=== PATIENT | female | born 1995 | race Caucasian/White ===

== ENCOUNTER 2018-08-08 10:03 | Outpatient (REF) | payer OTHER, MEDICAID, SELFPAY ==
--- NOTE | 2018-08-08 08:30 | PAPFT_PTH ---
PATIENT: Palak Mckenzie LOC: [facility] U#:[id number] AGE/SX: 23/F ROOM: RE08/08/[address]: RITA Sung : 1995 BED: DIS: 08/08/2018 SPEC #: [id number] RECD: 08/08/18 13:19 STATUS: EDMAR REJosh #: [id number] AC: 08/08/18 08:[address]: Nika Chavez DEPT: [facility]CLUD[facility] Cytology RECD BY: Pamella Ramirez ENTERED: 08/08/18 13:19 SP TYPE: PAPFT OTHR DR: Pasquale Rubio Tissues: 1 - CX/ENDOCX FOR PAP SMEARS Procedures: PAP THIN PREP/[facility] Screening Comments: [id number]
[2018-08-09 14:39] LABS: Chlamydia Result Negative; GC Result Negative; Specimen Description CERVIX
== END 2018-08-08 10:23 ==
LOC: LBN 10:03
PROVIDERS: PCP Internal Medicine; Visit Provider Nurse Practitioner Family
DX: R30.0 Dysuria (principal); Z11.3 Encounter for screening for infections with a predominantly sexual mode of transmission; Z12.4 Encounter for screening for malignant neoplasm of cervix
CPT/HCPCS: 87491; 87591; 88142; 87086

== ENCOUNTER 2018-08-20 17:48 | Outpatient (REF) | payer OTHER, MEDICAID, SELFPAY ==
--- NOTE | 2018-08-20 14:50 | ENDO_PTH ---
PATIENT: Palak Mckenzie LOC: [facility] U#:[id number] AGE/SX: 23/F ROOM: RE08/20/[address]: RITA Sung : 1995 BED: DIS: 08/20/2018 SPEC #: [id number] RECD: 08/20/18 17:53 STATUS: EDMAR REQ #: [id number] AC: 08/20/18 14:[address]: Nika Cahvez DEPT: Surgical Specimen RECD BY: Pamella Ramirez ENTERED: 08/20/18 17:54 SP TYPE: Endo OTHR DR: Pasquale Rubio Tissues: 1 - ENDOCERVICAL BX/CURRETTE Procedures: GROSS AND MICRO LEVEL 4 Comments: [id number]
== END 2018-08-20 18:08 ==
LOC: LBN 17:48
PROVIDERS: PCP Internal Medicine; Visit Provider Nurse Practitioner Family
DX: N87.9 Dysplasia of cervix uteri, unspecified (principal); N72 Inflammatory disease of cervix uteri; R87.612 Low grade squamous intraepithelial lesion on cytologic smear of cervix (LGSIL)
CPT/HCPCS: 88305

== ENCOUNTER 2019-07-15 12:47 | Outpatient (REF) | payer OTHER, MEDICAID, SELFPAY ==
[2019-07-15 18:05] LABS: ESR 10 mm/hr (0-20)
[2019-07-17 13:37] LABS: C-Reactive Protein 0.06 mg/dL (0.0-0.3)
== END 2019-07-15 13:07 ==
LOC: NCHCN 12:47
PROVIDERS: PCP Internal Medicine; Visit Provider Specialist/Technologist Athletic Trainer
DX: L08.9 Local infection of the skin and subcutaneous tissue, unspecified (principal)
CPT/HCPCS: 85652; 86141; 86140

== ENCOUNTER 2019-10-13 14:19 | Outpatient (REF) | payer OTHER, SELFPAY ==
--- NOTE | 2019-10-13 13:30 | PAPFT_PTH ---
PATIENT: Palak Mckenzie LOC: [facility] U#:[id number] AGE/SX: 24/F ROOM: RE10/13/[address]: Karen Louis NP : 1995 BED: DIS: 10/13/2019 SPEC #: [id number] RECD: 10/13/19 16:51 STATUS: EDMAR REJosh #: [id number] AC: 10/13/19 13:[address]: Karen Louis NP DEPT: [facility] Cytology RECD BY: Pamella Ramirez ENTERED: 10/13/19 16:51 SP TYPE: PAPFT OTHR DR: Pasquale Rubio Tissues: 1 - CX/ENDOCX FOR PAP SMEARS Procedures: PAP THIN PREP/[facility]VM Screening Comments: [id number]
[2019-10-14 13:40] LABS: Chlamydia Result Negative (Negative); GC Result Negative (Negative)
== END 2019-10-13 14:39 ==
LOC: LBN 14:19
PROVIDERS: PCP Internal Medicine; Visit Provider Nurse Practitioner Women's Health
DX: Z11.3 Encounter for screening for infections with a predominantly sexual mode of transmission (principal); Z12.4 Encounter for screening for malignant neoplasm of cervix
CPT/HCPCS: 87491; 87591; 88142

== ENCOUNTER 2019-11-28 12:55 | Outpatient (REF) | payer OTHER, SELFPAY ==
[2019-11-28 15:46] LABS: ALT 18 U/L (14-59); AST 15 U/L (15-37); Albumin 4.5 g/dL (3.4-5.0); Alkaline Phosphatase 76 U/L (46-116); BUN 7 mg/dL (7-18); Bilirubin, Total 0.8 mg/dL (0.2-1.0); CREATININE 0.91 mg/dL (0.55-1.02); Calcium 9.5 mg/dL (8.5-10.1); Chloride 102 mmol/L (98-107); Glucose 83 mg/dL (74-106); HGB 15.3 g/dL (12.0-15.5); Mean Corpuscular Hemoglobin 31.7 pg (27.0-33.0); Mean Corpuscular Volume 93.4 fL (80-95); Mean Platelet Volume 11.4 fL (8.0-11.0); Platelet Count 228 x1000/uL (130-400); Potassium 4.2 mmol/L (3.5-5.1); RBC 4.82 m/cumm (4.00-5.20); RBC Distribution Width 13.5 % (11.7-14.6); Sodium 139 mmol/L (136-145); Total Protein 8.3 g/dL (6.4-8.2); White Blood Cell Count 8.52 k/cumm (4.4-10.8)
[2019-11-28 15:49] LABS: Mono Screening Negative (Negative)
[2019-12-01 15:35] LABS: HSV 1 PCR, Varies Positive (Negative); HSV 2 PCR, Varies Negative (Negative); Herpes Source LOWER LIP
[2019-12-01 15:52] LABS: COVID-19 RT-PCR UVMMC Result Negative (Negative)
[2019-12-02 20:50] LABS: Specimen Source LOWER LIP
== END 2019-11-28 13:15 ==
LOC: NCHCN 12:55
PROVIDERS: PCP Internal Medicine; Visit Provider Nurse Practitioner Family
DX: J02.9 Acute pharyngitis, unspecified (principal); Z11.59 Encounter for screening for other viral diseases; R59.1 Generalized enlarged lymph nodes
CPT/HCPCS: 80053; 85027; 87529; U0003; 86308; 87798

== ENCOUNTER 2019-12-03 16:14 | Outpatient (REF) | payer OTHER, SELFPAY ==
[2019-12-05 11:04] LABS: HSV 1 DNA Result Positive (Negative); HSV 2 DNA Result Negative (Negative)
[2019-12-05 13:33] LABS: Chlamydia Result Negative (Negative); GC Result Negative (Negative)
== END 2019-12-03 16:34 ==
LOC: LBN 16:14
PROVIDERS: PCP Internal Medicine; Visit Provider Nurse Practitioner Women's Health
DX: N94.9 Unspecified condition associated with female genital organs and menstrual cycle (principal); Z11.3 Encounter for screening for infections with a predominantly sexual mode of transmission
CPT/HCPCS: 87491; 87529; 87591

== ENCOUNTER 2019-12-27 08:58 | Emergency (ER) | payer OTHER, SELFPAY ==
[2019-12-27] VITALS (13 sets, daily range): BP systolic 100–106; BP diastolic 62–68; PULSE 79–109; RESP 15–18; TEMP 36.5; O2SAT 97–100
--- NOTE | 2019-12-27 09:01 | ED.GENADUL_ITS ---
Discharge Plan Disposition Patient Disposition: HOME Condition: Good Discharge Details Chief Complaint: GenMedical Clinical Impression: Alcohol use, Racing heart beat Primary Care Provider: Pasquale Rubio ED Provider: Yelena Hwang Home Meds and New Rx's Prescriptions: Continued Hair,Skin and Nails(FA-biotin) 66.7-1,000 mcg tablet PO DAILY RF: 0 valacyclovir [Valtrex] 500 mg tablet 500 mg PO BID 3 Days Qty: 6 RF: 8 Women's Daily Caplet 1 EACH tablet 1 ea PO RF: 0 Mirena 1 EACH intrauterine device 1 ea Intrauterine ONCE Qty: 1 RF: 0 Discharge Instructions Instructions: Abuse of Alcohol (ED) Additional Instructions: Your EKG and labs are reassuring today. Much of this is likely associated with your alcohol use last night. Please encourage water intake. Try to cut back on alcohol. When you feel that you are ready need help with quitting please reach out to your primary care. gymnastics coach will be touching base. If you develop new/worsening symptoms please seek care urgently once again. Referrals: Pasquale Rubio MD [Primary Care Provider] - Medical Decision Making <ANN-MARIE Whitehead - Last Filed: 12/27/19 10:38> Patient is 24-year-old female presenting requesting hydration. Since the patient had large amount although typical amount of alcohol last night. States that last night prior to bed she had noted her heart was racing. She also fel t that her skin was hot. She denied any chest pain. No shortness of breath. Denies any GI upset. States she has not felt like this typically with her daily alcohol consumption. Patient reports IUD is in place, denies status. Patient denies any illicit drug use. Denies any marijuana use. Symptoms have since resolved and she is currently feeling at her baseline although reports b eing tired. On exam, patient is difficult to elicit history from. She is nontoxic and does not appear acutely ill. She does appear dehydrated. She is guarded in her answer and slow to do so. Normal cardiac exam, lungs are clear. Exam is otherwise within normal limits. I began discussing my concerns regarding the patient's symptoms and recommended evaluation, the patient began declining for any she only wanted hydration. On further questioning since the patient does not want us to run a drug test on her and does not want her medical information disclosed to others with seems to be her primary concern. I reassured her that no drug screen would be performed she had denied any illicit drug use. Advised that we would be looking for potential causes of her racing heart as well as hydrating the patient. Advised that we would perform a test which she is in agreement with. EKG was reviewed by Dr. López. Patient is in a normal sinus rhythm with a rate of 83. No acute ischemic changes noted. Labs reviewed. No significant abnormalities noted on CBC. No significant abnormalities on CMP. Troponin is less than 0.05. She had a symptoms last night and they are currently resolved, do not feel that repeat is necessary at this point. TSH within normal limits. ETOH 38.. UPT negative. Patient is requesting discharge. She has been asymptomatic since being here. I did offer her manager of disaster recovery to come chat with her which she declined. However, I am concerned about the large amount of alcohol the patient reports drinking daily. She does report that her family is concerned regarding her generous alcohol consumption. I have rechecked the manager of disaster recovery and have asked that they call to touch base. Improving that with some time she may reconsider. I did advise close follow-up with primary care. Encourage water intake. Encourage cutting back on alcohol. She was given return precautions. All other questions or concerns were addressed and she is in agreement this plan <Graeme López MD - Last Filed: 12/27/19 10:12> Patient seen, examined, discussed with Ms. Hwang. I agree with her assessment and plan of care. See her note for details. HPI <ANN-MARIE Whitehead - Last Filed: 12/27/19 10:38> General Mode of arrival: ambulatory . Date/Time Provider Initiated Documentation: 12/27/19 09:01 . Limitations to Documentation: no limitations . Information obtained by: patient and RN notes reviewed . HPI Narrative: Patient is a 24-year-old female presenting today requesting hydration. She reports that she drank a typical amount of alcohol last night, 7-8 hard alcohol beverages, and woke up this morning feeling unwell. She reports that last night, prior to bed she did have a similar feeling. She felt her heart was racing. She felt that her skin was on fire. Denies any shortness of breath. No GI upset. Denies any change in bowel or bladder habits. Denies any fevers. Denies any central chest pain. No back pain. Denies any headache. No visual changes. Patient denies any illicit drug use. Related Data Home Medications Medication Instructions Recorded Confirmed Women's Daily Caplet 1 ea PO 07/10/17 12/03/19 Mirena 1 ea INTRAUTERINE ONCE #1 implant 08/15/17 12/27/19 multivitamin with minerals-folic tab PO DAILY tab 08/20/18 12/03/19 acid 66.7 mcg-biotin 1,000 mcg tablet valacyclovir 500 mg tablet 500 mg PO BID 3 Days #6 tab 12/03/19 12/27/19 Previous Rx's Medication Instructions Recorded valacyclovir 500 mg tablet 500 mg PO BID 3 Days #6 tab 12/03/19 Allergies Allergy/AdvReac Type Severity Reaction Status Date / Time [employer] Allergy HIVES Uncoded 12/27/19 09:11 Review of Systems <ANN-MARIE Whitehead - Last Filed: 12/27/19 10:38> Constitutional Constitutional: Reports as per HPI, Denies chills, Denies fever(s), Denies headache(s), Denies lethargy and Denies poor appetite Eyes Eyes: Denies change in vision ENT Ears, Nose, Mouth, and Throat: Denies dizziness and Denies headache(s) Cardiovascular Cardiovascular: Reports as per HPI, Denies chest pain, Denies chest pain at rest, Denies chest pain with activity, Denies diaphoresis, Denies syncope, Reports rapid heart rate, Denies irregular heart rhythm, Denies leg edema, Denies lightheadedness, Denies radiating jaw, neck or arm pain, Denies palpitations, Denies dyspnea, Denies dyspnea on exertion and Denies orthopnea Respiratory Respiratory: Reports as per HPI, Denies chest congestion, Denies cough, Denies pain on inspiration, Denies pain with cough, Denies dyspnea, Denies dyspnea on exertion and Denies wheezing Gastrointestinal Gastrointestinal: Reports as per HPI, Denies abdominal pain, Denies diarrhea, Denies nausea and Denies vomiting Musculoskeletal Musculoskeletal: Reports as per HPI and Denies back pain Integumentary/Breasts Skin/Breast: Reports as per HPI, Denies rash and Reports other ([place] hot- indicates her torso) Neurologic Neurologic: Reports as per HPI, Denies dizziness, Denies syncope and Denies headache(s) Endocrine Endocrine: Denies palpitations Allergic/Immunologic Allergic/Immunologic: Denies wheezing PFSH <ANN-MARIE Whitehead - Last Filed: 12/27/19 10:38> Medical History Anal fissure (Resolved) Dx at colonoscopy for hematochezia. 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 Irritable bowel syndrome without diarrhea (Chronic 07/26/15) IUD surveillance (Acute) Migraine with aura and without status migrainosus, not intractable (Chronic 07/10/17) Surgical History Tonsillectomy and adenoidectomy Social History Smoking/Tobacco Use Status: Never Alcohol Intake: current Alcohol Intake frequency: a few times a week Drug use: Never Substance use type: does not use Do you feel safe at home: Yes Do you feel safe in your relationship?: Yes Female Reproductive History Menstrual control method: progestin IUCD History History 0 Para Hx # Term Pregnancies Multiple births Hx # Pregnancies Ectopic pregnancies AB induced Hx Number of Living Children AB spontaneous Exam <ANN-MARIE Whitehead - Last Filed: 12/27/19 10:38> Const General: cooperative, comfortable, no acute distress, well developed and intoxicated appearing (patient is delayed in responses, guarded and vague) Nutritional Appearance: average body habitus and well nourished Orientation: alert, awake and oriented x3 HENMT Head: normal to inspection Ears: hearing grossly normal bilaterally, external ears normal and TM's normal bilaterally General nose exam: external nose normal Mouth: oral mucosae normal, lip normal, tongue normal and mucous membranes dry (looks dry) Teeth and gingiva: dentition normal Throat: posterior oropharynx normal, tonsils normal and uvula midline Eyes General: appearance normal, both eyes and all related structures Visual Cantu: normal visual cantu by confrontation Alignment and Position: alignment normal and position normal Periorbital: periorbital findings normal Eyelids: eyelids normal Conjunctivae: conjunctivae normal Pupils: PERRL and normal by confrontation Chest Chest: normal inspection of the chest, normal palpation of entire chest wall and no crepitus Resp Effort & Inspection: normal respiratory effort, able to speak in complete sentences and no respiratory distress Auscultation: clear to auscultation bilaterally, no rales, no rhonchi and no wheezes Cardio Rate: regular rate Rhythm: regular rhythm Heart Sounds: S1 normal and S2 normal GI Inspection: normal to inspection, no edema and non-distended Palpation: soft, no hepatosplenomegaly, not firm, no guarding, not rigid and nontender Auscultation: normal bowel sounds Back/Spine/Pelvis Back: no CVA tenderness Thoracic/Lumbar Spine: thoracic and lumbar spine normal to inspection Skin General skin exam: no rashes or lesions noted Trauma: no lacerations or abrasions Neuro General: patient alert, patient awake and patient oriented x3 Cognition: normal cognition Speech: speech normal Gait: normal gait Extrem General: normal to inspection, capillary refill normal, no pedal edema, no calf tenderness and normal gait Psych Appearance: grossly normal and well kempt Mental Status: mental status grossly normal Speech and Movement: delayed speech and slowed movement Affect: indifferent and blunted Attitude: guarded Thought Process: normal Thought Content: normal
[2019-12-27] MEDS: Lactated Ringers 1,000 ML 1000 ML IV (09:32)
[2019-12-27 09:33] LABS: Abs Immature Grans 0.02 k/cumm (0.0-0.09); Absolute Basophil Count 0.03 k/cumm (0.0-0.2); Absolute Eosinophil Count 0.08 k/cumm (0.0-0.7); Absolute Monocyte Count 0.57 k/cumm (0.11-0.7); Absolute Neutrophil Count 4.78 k/cumm (1.2-6.7); Basophils % 0.4; Eosinophils % 1.1; HCT 42.3 % (36.0-46.0); HGB 14.3 g/dL (12.0-15.5); Immature Grans % 0.3 %; Lymphocytes % 27.7; Mean Corp. HGB Concentration 33.8 g/dL (32.0-36.0); Mean Corpuscular Hemoglobin 32.6 pg (27.0-33.0); Mean Corpuscular Volume 96.6 fL (80-95); Mean Platelet Volume 9.9 fL (8.0-11.0); Monocytes % 7.5; Platelet Count 270 x1000/uL (130-400); RBC 4.38 m/cumm (4.00-5.20); RBC Distribution Width 15.4 % (11.7-14.6); White Blood Cell Count 7.58 k/cumm (4.4-10.8)
[2019-12-27 09:54] LABS: ALT 21 U/L (14-59); AST 18 U/L (15-37); Albumin 4.3 g/dL (3.4-5.0); Alkaline Phosphatase 72 U/L (46-116); Anion Gap 8.9 mmol/L (3-11); BUN 5 mg/dL (7-18); Bilirubin, Total 0.5 mg/dL (0.2-1.0); CO2 24.1 mmol/L (21.0-32.0); CREATININE 0.95 mg/dL (0.55-1.02); Calcium 9.1 mg/dL (8.5-10.1); Chloride 104 mmol/L (98-107); Creatine Kinase 82 U/L (26-192); ETHANOL BLOOD 38.9 mg/dL (<3); Glucose 104 mg/dL (74-106); Magnesium 1.9 mg/dL (1.8-2.4); Potassium 3.9 mmol/L (3.5-5.1); Sodium 137 mmol/L (136-145); Total Protein 7.7 g/dL (6.4-8.2)
[2019-12-27 10:00] LABS: TSH (W/Ref FT4) 0.56 uIU/mL (0.36-3.74); Troponin I < 0.05 ng/mL (<0.06)
[2019-12-27 10:38] LABS: Bilirubin Negative (Negative); Blood Negative (Negative); Clarity Clear (Clear); Glucose Negative (Negative); Ketones Negative (Negative); Leukocyte Esterase Negative (Negative); Nitrite Negative (Negative); Urobilinogen 0.2 EU/dL (Up TO 0.2)
[2019-12-27 10:58] LABS: Bacteria Negative HPF (Negative); Crystals Negative HPF (Negative); Epithelial Cells Few HPF (Negative); Mucus Trace (Negative); RBC Negative HPF (0-2)
[2019-12-27 10:59] LABS: C & S Indicated? Yes; Casts 0-2 Coarse Granular LPF (Negative)
== END 2019-12-27 10:46 | disposition home or self-care (01) ==
PROVIDERS: Emergency Provider Physician Assistant; PCP Internal Medicine
DX: R00.8 Other abnormalities of heart beat (principal); E86.0 Dehydration; F10.10 Alcohol abuse, uncomplicated
CPT/HCPCS: 36415; 80053; 81025; 82550; 93005; 96360; 99284; 80320; 81003; 81015; 83735; 84443; 84484; 85025; 87086; 93010

== ENCOUNTER 2020-02-03 20:12 | Outpatient (REF) | payer MEDICAID, SELFPAY ==
[2020-02-04 14:31] LABS: Chlamydia Result Negative (Negative); GC Result Negative (Negative)
== END 2020-02-03 20:32 ==
LOC: LBN 20:12
PROVIDERS: PCP Internal Medicine; Visit Provider Nurse Practitioner Women's Health
DX: Z11.3 Encounter for screening for infections with a predominantly sexual mode of transmission (principal)
CPT/HCPCS: 87491; 87591

== ENCOUNTER 2020-07-14 16:04 | Outpatient (REF) | payer MEDICAID, SELFPAY ==
[2020-07-17 02:08] LABS: COVID-19 RT-PCR UVMMC Result Negative (Negative)
== END 2020-07-14 16:24 ==
LOC: NCHCN 16:04
PROVIDERS: PCP Internal Medicine; Visit Provider Nurse Practitioner Family
DX: Z20.828 Contact with and (suspected) exposure to other viral communicable diseases (principal)
CPT/HCPCS: U0003

== ENCOUNTER 2020-08-18 12:24 | Outpatient (REF) | payer MEDICAID, SELFPAY ==
--- NOTE | 2020-08-18 10:00 | PAPFT_PTH ---
PATIENT: Palak Mckenzie LOC: [facility] U#:[id number] AGE/SX: 25/F ROOM: RE08/18/[address]: Karen Louis NP : 1995 BED: DIS: 08/18/2020 SPEC #: [id number] RECD: 08/18/20 13:06 STATUS: EDMAR GUY #: [id number] AC: 08/18/20 10:[address]: Karen Louis NP DEPT: [facility] Cytology RECD BY: Pamella Ramirez ENTERED: 08/18/20 13:07 SP TYPE: PAPFT OTHR DR: Pasquale Rubio Tissues: 1 - CX/ENDOCX FOR PAP SMEARS Procedures: PAP THIN PREP/[facility] Screening Comments: [id number] (CHLAMYDIA/GC)
[2020-08-19 15:43] LABS: Chlamydia Result Negative (Negative); GC Result Negative (Negative)
== END 2020-08-18 12:44 ==
LOC: LBN 12:24
PROVIDERS: PCP Internal Medicine; Visit Provider Nurse Practitioner Women's Health
DX: Z12.4 Encounter for screening for malignant neoplasm of cervix (principal)
CPT/HCPCS: 87491; 87591; 88142

== ENCOUNTER 2020-09-10 18:53 | Outpatient (REF) | payer MEDICAID, SELFPAY ==
[2020-09-13 15:30] LABS: Chlamydia Result Negative (Negative); GC Result Negative (Negative)
== END 2020-09-10 18:54 | disposition home or self-care (01) ==
LOC: NCHCN 18:53
PROVIDERS: PCP Internal Medicine; Visit Provider Obstetrics & Gynecology
DX: A63.8 Other specified predominantly sexually transmitted diseases (principal); Z11.3 Encounter for screening for infections with a predominantly sexual mode of transmission
CPT/HCPCS: 87491; 87591; 87480; 87510; 87660

== ENCOUNTER 2021-04-18 18:01 | Outpatient (REF) | payer MEDICAID, SELFPAY ==
[2021-04-20 15:47] LABS: COVID-19 RT-PCR UVMMC Result Negative (Negative)
== END 2021-04-18 18:02 | disposition home or self-care (01) ==
LOC: NCHCN 18:01
PROVIDERS: PCP Internal Medicine; Visit Provider Family Medicine
DX: Z20.822 Contact with and (suspected) exposure to COVID-19 (principal); J02.9 Acute pharyngitis, unspecified
CPT/HCPCS: U0003

== ENCOUNTER 2021-04-25 17:20 | Outpatient (REF) | payer MEDICAID, SELFPAY ==
[2021-04-25 21:20] LABS: Abs Immature Grans 0.05 10^3/uL (0.0-0.06); Absolute Basophil Count 0.04 10^3/uL (0.0-0.2); Absolute Eosinophil Count 0.09 10^3/uL (0.0-0.7); Absolute Lymphocyte Count 1.38 10^3/uL (1.2-3.4); Absolute Monocyte Count 0.97 10^3/uL (0.1-0.8); Absolute Neutrophil Count 6.41 10^3/uL (1.2-6.7); Basophils % 0.4; HCT 41.9 % (36.0-46.0); HGB 13.9 g/dL (11.2-15.7); Immature Grans % 0.6; Lymphocytes % 15.4; MCH 32.6 pg (27.0-33.0); MCHC 33.2 % (32.0-36.0); MCV 98.4 fL (80-95); MPV 10.2 fL (8.0-11.0); Monocytes % 10.9; Neutrophils % 71.7; Nucleated RBC 0 %; Platelet Count 301 10^3/uL (130-400); RBC 4.26 10^6/uL (3.93-5.22); RDW 13.2 % (11.7-14.6); RDW-SD 47.1 fL; WBC 8.94 10^3/uL (4.4-10.8)
[2021-04-25 22:22] LABS: Mono Screening Negative (Negative)
== END 2021-04-25 17:21 | disposition home or self-care (01) ==
LOC: NCHCN 17:20
PROVIDERS: PCP Internal Medicine; Visit Provider Nurse Practitioner Family
DX: Z20.9 Contact with and (suspected) exposure to unspecified communicable disease (principal)
CPT/HCPCS: 85025; 86308

== ENCOUNTER 2021-06-21 11:14 | Outpatient (REF) | payer MEDICAID, SELFPAY ==
[2021-06-22 19:15] LABS: COVID-19 RT-PCR UVMMC Result Positive (Negative)
== END 2021-06-21 11:15 | disposition home or self-care (01) ==
LOC: NCHCN 11:14
PROVIDERS: PCP Internal Medicine; Visit Provider Nurse Practitioner Family
DX: Z20.822 Contact with and (suspected) exposure to COVID-19 (principal)
CPT/HCPCS: U0003

== ENCOUNTER 2021-08-22 09:40 | Outpatient (REF) | payer MEDICAID, SELFPAY ==
--- NOTE | 2021-08-22 09:00 | PAPFT_PTH ---
PATIENT: Palak Mckenzie LOC: [facility] U#:[id number] AGE/SX: 26/F ROOM: RE08/22/[address]: Karen Louis NP : 1995 BED: DIS: 08/22/2021 SPEC #: [id number] RECD: 08/22/21 12:47 STATUS: EDMAR REJosh #: [id number] AC: 08/22/21 09:[address]: Karen Louis NP DEPT: [facility] Cytology RECD BY: Pamella Ramirez ENTERED: 08/22/21 12:48 SP TYPE: PAPFT OTHR DR: Pasquale Rubio Tissues: 1 - CX/ENDOCX FOR PAP SMEARS Procedures: PAP THIN PREP/[facility] Screening Comments: [id number] (CHLAMYDIA/GC)
[2021-08-23 17:53] LABS: Chlamydia Result Negative (Negative); GC Result Negative (Negative)
== END 2021-08-22 09:41 | disposition home or self-care (01) ==
LOC: LBN 09:40
PROVIDERS: PCP Internal Medicine; Visit Provider Nurse Practitioner Women's Health
DX: Z11.3 Encounter for screening for infections with a predominantly sexual mode of transmission (principal); Z12.4 Encounter for screening for malignant neoplasm of cervix
CPT/HCPCS: 87491; 87591; 88142

== ENCOUNTER 2021-08-23 02:07 | Outpatient (CLI) | payer MEDICAID, SELFPAY ==
[2021-08-24 11:28] LABS: HIV-1/2 Ag & Ab Screen Negative (Negative)
[2021-08-24 11:32] LABS: Hepatitis C Ab w Rflx HCV PCR Negative (Negative)
[2021-08-25 18:28] LABS: Syphilis Total Ab w/Reflex Nonreactive (Nonreactive)
== END 2021-08-23 02:08 | disposition home or self-care (01) ==
LOC: LBO 02:07
PROVIDERS: PCP Internal Medicine; Visit Provider Nurse Practitioner Women's Health
DX: Z11.3 Encounter for screening for infections with a predominantly sexual mode of transmission (principal); Z11.4 Encounter for screening for human immunodeficiency virus [HIV]
CPT/HCPCS: 36415; 86803; 87389; 86780

== ENCOUNTER 2021-10-26 15:54 | Outpatient (REF) | payer MEDICAID, SELFPAY ==
[2021-10-26 21:31] LABS: HCT 38.5 % (36.0-46.0); MCHC 33.8 % (32.0-36.0); MCV 94.8 fL (80-95); MPV 10.8 fL (8.0-11.0); Platelet Count 275 10^3/uL (130-400); RBC 4.06 10^6/uL (3.93-5.22); RDW 12.6 % (11.7-14.6); RDW-SD 44.2 fL; WBC 5.72 10^3/uL (4.4-10.8)
[2021-10-26 22:00] LABS: ALT 20 U/L (14-59); AST 16 U/L (15-37); Albumin 4.4 g/dL (3.4-5.0); Alkaline Phosphatase 60 U/L (46-116); Anion Gap 9.5 mmol/L (3-11); BUN 6 mg/dL (7-18); Bilirubin, Total 0.8 mg/dL (0.2-1.0); CO2 25.5 mmol/L (21.0-32.0); CREATININE 0.7 mg/dL (0.55-1.02); Calcium 8.8 mg/dL (8.5-10.1); Chloride 104 mmol/L (98-107); Glucose 85 mg/dL (74-106); Sodium 139 mmol/L (136-145); TSH (W/Ref FT4) 0.97 uIU/mL (0.36-3.74); Total Protein 7.5 g/dL (6.4-8.2)
[2021-10-28 10:09] LABS: Hepatitis C Ab w Rflx HCV PCR Negative (Negative)
[2021-10-28 10:25] LABS: HIV-1/2 Ag & Ab Screen Negative (Negative)
[2021-10-28 13:36] LABS: Syphilis Serology (RPR) Negative (Negative)
== END 2021-10-26 15:55 | disposition home or self-care (01) ==
LOC: NCHCN 15:54
PROVIDERS: PCP Internal Medicine; Visit Provider Nurse Practitioner Family
DX: R53.83 Other fatigue (principal); Z11.59 Encounter for screening for other viral diseases; Z11.4 Encounter for screening for human immunodeficiency virus [HIV]
CPT/HCPCS: 80053; 85027; 86803; 87389; 84443; 86592

== ENCOUNTER 2021-11-15 16:01 | Outpatient (REF) | payer MEDICAID, SELFPAY ==
[2021-11-17 11:43] LABS: COVID-19 RT-PCR UVMMC Result Negative (Negative)
== END 2021-11-15 16:02 | disposition home or self-care (01) ==
LOC: NCHCN 16:01
PROVIDERS: PCP Internal Medicine; Visit Provider Nurse Practitioner Family
DX: Z20.822 Contact with and (suspected) exposure to COVID-19 (principal); J02.9 Acute pharyngitis, unspecified
CPT/HCPCS: U0003

== ENCOUNTER 2022-03-17 18:16 | Outpatient (REF) | payer MEDICAID, SELFPAY ==
[2022-03-19 10:22] LABS: COVID-19 RT-PCR UVMMC Result Negative (Negative)
== END 2022-03-17 18:17 | disposition home or self-care (01) ==
LOC: NCHCN 18:16
PROVIDERS: PCP Internal Medicine; Visit Provider Nurse Practitioner Family
DX: Z20.822 Contact with and (suspected) exposure to COVID-19 (principal)
CPT/HCPCS: U0003

== ENCOUNTER 2022-08-23 11:33 | Outpatient (REF) | payer MEDICAID, SELFPAY ==
[2022-08-30 12:57] LABS: Chlamydia Result Negative (Negative)
[2022-08-30 12:59] LABS: GC Result Negative (Negative)
== END 2022-08-23 11:34 | disposition home or self-care (01) ==
LOC: LBN 11:33
PROVIDERS: PCP Internal Medicine; Visit Provider Nurse Practitioner Women's Health
DX: Z11.3 Encounter for screening for infections with a predominantly sexual mode of transmission (principal)
CPT/HCPCS: 87491; 87591

== ENCOUNTER 2023-10-15 11:52 | Outpatient (REF) | payer MEDICAID, SELFPAY ==
[2023-10-16 14:10] LABS: Chlamydia Result Negative (Negative); GC Result Negative (Negative)
== END 2023-10-15 11:53 | disposition home or self-care (01) ==
LOC: LBN 11:52
PROVIDERS: PCP Internal Medicine; Visit Provider Nurse Practitioner Women's Health
DX: Z11.3 Encounter for screening for infections with a predominantly sexual mode of transmission (principal)
CPT/HCPCS: 87491; 87591

== ENCOUNTER 2024-10-07 11:03 | Outpatient (REF) | payer MEDICAID, SELFPAY ==
--- NOTE | 2024-10-07 15:40 | SKI_PTH ---
PATIENT: Palak Mckenzie LOC: [facility] U#:[id number] AGE/SX: 29/F ROOM: RE10/07/[address]: Cathy Hayes : 1995 BED: DIS: 10/07/2024 SPEC #: [id number] RECD: 10/08/24 12:38 STATUS: EDMAR REJosh #: [id number] AC: 10/07/24 15:[address]: Cathy Hayes DEPT: Surgical Specimen RECD BY: Pamella Ramirez Tissues: 1 - SKIN BIOPSY(SHAVE/PUNCH) Procedures: SKIN LEVEL 4 Comments: [id number]
== END 2024-10-07 11:04 | disposition home or self-care (01) ==
LOC: NCHCN 11:03
PROVIDERS: PCP Nurse Practitioner Family; Visit Provider Nurse Practitioner Family
DX: L82.1 Other seborrheic keratosis (principal)
CPT/HCPCS: 88305

== ENCOUNTER 2025-04-17 14:18 | Outpatient (REF) | payer MEDICAID, SELFPAY ==
[2025-04-23 14:24] LABS: Galactose-alpha-1,3 IgE <0.10 kU/L (<0.70)
== END 2025-04-17 14:19 | disposition home or self-care (01) ==
LOC: NCHCN 14:18
PROVIDERS: PCP Nurse Practitioner Family; Visit Provider Nurse Practitioner Family
DX: K90.49 Malabsorption due to intolerance, not elsewhere classified (principal)
CPT/HCPCS: 86003